=== PATIENT | female | born 1945 | race Caucasian/White ===

== ENCOUNTER 2017-02-13 02:06 | Inpatient (IN) | payer MEDICAID ==
[~2017-02-13] VITALS: Ht 309.9 cm; Wt 69.5 kg
[2017-02-13] VITALS (14 sets, daily range): BP systolic 139–177; BP diastolic 51–73
[~2017-02-13 02:06] MED LIST: ACET-2178 PO; ASPI-1035 PO; ATOR80TA PO; CARV25TA47 PO; CLOP75TA2 PO; FERR-63 PO; GABA-290 PO; HYDR-4134 PO; LEVO75TA PO; LISI-186 PO; SEVE800T8 PO
[2017-02-13] MEDS ORDERED: MORPHINE SULFATE 4 MG/ML CPJ (NOT FOR IM USE) IV ONE (03:00)
[2017-02-13] MEDS ORDERED: HYDRALAZINE 20MG/ML VIAL IV ONE (03:00)
[2017-02-13] MEDS ORDERED: ONDANSETRON HCL 4MG/2ML VIAL IV ONE (03:00)
[2017-02-13 03:05] LABS: BASOPHILS % 0.8 % (0.0-2.0); DIFFERENTIAL COMMENT 0; EOSINOPHILS % 5.9 % (0.0-5.0); HEMOGLOBIN. 9.9 g/dL (12.0-16.0); LYMPHOCYTES % 11.8 % (20.0-50.0); MEAN CORPUSCULAR HEMOGLOBIN 33.5 pg (28.0-32.0); MEAN CORPUSCULAR HGB CONC 32.9 g/dL (31.0-37.0); MEAN PLATELET VOLUME 10.7 fl (7.4-10.4); NEUTROPHILS % 75.5 % (40.0-76.0); PLATELET 102 x1000/uL (130-400); RED BLOOD CELL COUNT 2.95 mill/uL (4.2-5.4); RED CELL DISTRIBUTION WIDTH 16.7 % (11.6-14.6); WHITE BLOOD COUNT 8.7 x1000/uL (4.5-11.0)
[2017-02-13 03:10] LABS: INR 1.1; PROTHROMBIN TIME 11.4 sec
[2017-02-13 03:20] LABS: ALANINE AMINOTRANSFERASE < 6 IU/L (13-61); ALBUMIN 3.2 g/dL (3.4-5.0); ANION GAP 17; CALCIUM 8.5 mg/dL (8.5-10.1); CARBON DIOXIDE 26 mEq/L (21-32); CHLORIDE 102 mEq/L (98-107); INDEX HEMOLYSI 1 (1-3); INDEX ICTERIC 1 (1-4); INDEX LIPEMIC 1 (1-3); TROPONIN I 0.02 ng/mL (0.00-0.04); UREA NITROGEN BLOOD 45 mg/dL (7-21); eGFR 7 mL/min (>60)
[2017-02-13 03:32] LABS: NT PRO B-TYPE NATRIURETIC PEP 44801 pg/mL (5-125)
[2017-02-13] MEDS ORDERED: FENTANYL CITRATE/PF 50MCG/ML 2ML VIAL IV ONE (08:30)
[2017-02-13] MEDS ORDERED: VANCOMYCIN 1500MG in DEXTROSE 5% WATER 250ML IV SCH (14:00)
[2017-02-13] MEDS: HYDRALAZINE HCL 25MG TABLET PO SCH ×2 (14:00→23:44)
[2017-02-13] MEDS ORDERED: IOHEXOL-300 100 ML BOTTLE ONE (14:35)
[2017-02-13] MEDS ORDERED: ACETAMINOPHEN 325MG TABLET PO PRN (15:15)
[2017-02-13] MEDS ORDERED: ONDANSETRON HCL 4MG/2ML VIAL IV PRN (15:15)
[2017-02-13] MEDS ORDERED: HYDROCODONE/ACETAMINOPHEN 5/325MG TABLET PO PRN (15:15)
[2017-02-13] MEDS ORDERED: DOCUSATE SODIUM 100MG CAPSULE PO PRN (15:15)
[2017-02-13] MEDS ORDERED: GUAIFENESIN 200MG/10ML SUGAR FREE UDC PO PRN (15:15)
[2017-02-13] MEDS ORDERED: CLONIDINE 0.1MG TABLET PO PRN (15:15)
[2017-02-13] MEDS ORDERED: MAGNESIUM/ALUMINUM HYDROXIDE/SIMETHICONE 30ML UDC PO PRN (15:15)
[2017-02-13] MEDS: CLOPIDOGREL 75MG TABLET PO SCH (16:10)
[2017-02-13] MEDS ORDERED: LEVOFLOXACIN 500MG PREMIX 100 ML IV NR (17:00)
[2017-02-13] MEDS ORDERED: DEXTROSE 50% WATER 50ML SYRINGE IV PRN (18:45)
[2017-02-13] MEDS: INSULIN LISPRO 100 UNITS/ML SUBCUT SCH (21:00)
[2017-02-13] MEDS ORDERED: ATORVASTATIN CALCIUM 40MG TABLET PO SCH (21:00)
[2017-02-13] MEDS: BLOOD SUGAR DIAGNOSTIC STRIP TEST SCH (21:15)
[2017-02-13] MEDS: LISINOPRIL 10MG TABLET PO SCH (23:45)
[2017-02-13] MEDS: CARVEDILOL 25MG TABLET PO SCH (23:45)
[2017-02-14] VITALS: BP 151/65
[2017-02-14 04:00] VITALS: BP 132/59
[2017-02-14 06:25] LABS: BASOPHILS % 1.3 % (0.0-2.0); DIFFERENTIAL COMMENT 0; EOSINOPHILS % 8.2 % (0.0-5.0); HEMATOCRIT. 26.6 % (36.0-48.0); HEMOGLOBIN. 8.8 g/dL (12.0-16.0); MEAN CORPUSCULAR HEMOGLOBIN 33.8 pg (28.0-32.0); MEAN CORPUSCULAR HGB CONC 32.9 g/dL (31.0-37.0); MEAN CORPUSCULAR VOLUME 102.8 fL (81.0-99.0); MEAN PLATELET VOLUME 10.8 fl (7.4-10.4); MONOCYTES % 9.3 % (2.0-8.0); NEUTROPHILS % 63.2 % (40.0-76.0); PLATELET 81 x1000/uL (130-400); RED BLOOD CELL COUNT 2.59 mill/uL (4.2-5.4); RED CELL DISTRIBUTION WIDTH 16.9 % (11.6-14.6); WHITE BLOOD COUNT 4.9 x1000/uL (4.5-11.0)
[2017-02-14 06:34] LABS: CHLORIDE 107 mEq/L (98-107); INDEX HEMOLYSI 1 (1-3); INDEX ICTERIC 1 (1-4); INDEX LIPEMIC 1 (1-3)
[2017-02-14] MEDS: BLOOD SUGAR DIAGNOSTIC STRIP TEST SCH ×2 (06:36→12:22)
[2017-02-14] MEDS: HYDRALAZINE HCL 25MG TABLET PO SCH (06:36)
[2017-02-14 06:55] LABS: ALANINE AMINOTRANSFERASE < 6 IU/L (13-61); ALBUMIN 3.1 g/dL (3.4-5.0); ANION GAP 13; CALCIUM 8.8 mg/dL (8.5-10.1); CARBON DIOXIDE 27 mEq/L (21-32); MAGNESIUM 2.4 mg/dL (1.8-2.4); UREA NITROGEN BLOOD 23 mg/dL (7-21); eGFR 11 mL/min (>60)
[2017-02-14] MEDS: INSULIN LISPRO 100 UNITS/ML SUBCUT SCH (07:50)
[2017-02-14 08:00] VITALS: BP 130/55
[2017-02-14] MEDS ORDERED: ASPIRIN 81MG EC TABLET PO SCH (09:00)
[2017-02-14] MEDS: CLOPIDOGREL 75MG TABLET PO SCH (09:44)
[2017-02-14] MEDS: LISINOPRIL 10MG TABLET PO SCH (09:45)
[2017-02-14] MEDS: CARVEDILOL 25MG TABLET PO SCH (09:46)
[2017-02-15] MEDS ORDERED: LEVOFLOXACIN 250MG PREMIX 50 ML IV SCH (17:00)
[2017-02-15] MEDS ORDERED: EPOETIN ALFA 10000UNITS/ML VIAL SUBCUT SCH (21:00)
== END 2017-02-14 13:26 | disposition left against medical advice (07) | DRG 173 ==
LOC: ER 02:12 → 6WST 03:52
PROVIDERS: ADMIT Hospitalist; ATTEND Hospitalist
PROC: 5A1D00Z (ICD-10-PCS; principal; 2017-02-13)
PROC: 057Y3ZZ Dilation of Upper Vein, Percutaneous Approach (ICD-10-PCS; 2017-02-13)
PROC: B543ZZA Ultrasonography of Right Jugular Veins, Guidance (ICD-10-PCS; 2017-02-13)
PROC: 05HM33Z Insertion of Infusion Device into Right Internal Jugular Vein, Percutaneous Approach (ICD-10-PCS; 2017-02-13)
PROC: B5131ZA Fluoroscopy of Right Jugular Veins using Low Osmolar Contrast, Guidance (ICD-10-PCS; 2017-02-13)
PROC: B31N1ZZ Fluoroscopy of Other Upper Arteries using Low Osmolar Contrast (ICD-10-PCS; 2017-02-13)
DX: I13.2 Hypertensive heart and chronic kidney disease with heart failure and with stage 5 chronic kidney disease, or end stage renal disease (principal); N18.6 End stage renal disease; E11.22 Type 2 diabetes mellitus with diabetic chronic kidney disease; D63.1 Anemia in chronic kidney disease; D69.6 Thrombocytopenia, unspecified; I25.10 Atherosclerotic heart disease of native coronary artery without angina pectoris; I50.9 Heart failure, unspecified; E03.9 Hypothyroidism, unspecified; Z99.2 Dependence on renal dialysis; Z95.0 Presence of cardiac pacemaker; Z98.61 Coronary angioplasty status; Z95.1 Presence of aortocoronary bypass graft; Z88.6 Allergy status to analgesic agent
CPT/HCPCS: 36415; 36556; 36902; 71010; 76937; 77001; 80048; 80053; 82962; 83735; 83880; 84484; 85025; 85610; 87040; 93005; 93306; 96374; 96375; 99291; C1725; C1752; C1766; C1769; J0360; J1956; J2270; J2405; J3370; J7030; J7040; J7060; Q9967

== ENCOUNTER 2017-03-24 19:24 | Emergency (ER) | payer MEDICAID ==
[~2017-03-24] VITALS: Ht 157.5 cm; Wt 61.0 kg
[~2017-03-24 19:24] MED LIST changes: -ASPI-1035 PO; +ASPI-1159 PO
[2017-03-24] MEDS ORDERED: ONDANSETRON HCL 4MG/2ML VIAL IV STA (21:27)
[2017-03-24 22:02] LABS: BASOPHILS % 1.8 % (0.0-2.0); EOSINOPHILS % 5.5 % (0.0-5.0); HEMATOCRIT. 33.3 % (36.0-48.0); HEMOGLOBIN. 10.9 g/dL (12.0-16.0); LYMPHOCYTES % 33.3 % (20.0-50.0); MEAN CORPUSCULAR VOLUME 100.6 fL (81.0-99.0); MONOCYTES % 9.3 % (2.0-8.0); NEUTROPHILS % 50.1 % (40.0-76.0); PLATELET 98 x1000/uL (130-400); RED BLOOD CELL COUNT 3.31 mill/uL (4.2-5.4); RED CELL DISTRIBUTION WIDTH 17.4 % (11.6-14.6)
[2017-03-24 22:09] LABS: INR 1.1; PARTIAL THROMBOPLASTIN TIME 27.6 sec (24.0-34.0)
[2017-03-24 22:17] LABS: CARBON DIOXIDE 30 mEq/L (21-32); CHLORIDE 98 mEq/L (98-107); TROPONIN I 0.03 ng/mL (0.00-0.04)
[2017-03-24 22:45] VITALS: BP 132/89
== END 2017-03-25 01:15 | disposition home or self-care (01) ==
LOC: ER 22:53
DX: I13.11 Hypertensive heart and chronic kidney disease without heart failure, with stage 5 chronic kidney disease, or end stage renal disease (principal); E11.22 Type 2 diabetes mellitus with diabetic chronic kidney disease; N18.6 End stage renal disease; R60.9 Edema, unspecified; D50.9 Iron deficiency anemia, unspecified; E78.00 Pure hypercholesterolemia, unspecified; Z99.2 Dependence on renal dialysis; Z88.6 Allergy status to analgesic agent; Z95.1 Presence of aortocoronary bypass graft; Z79.82 Long term (current) use of aspirin
CPT/HCPCS: 36415; 70450; 71010; 80053; 83690; 83880; 84484; 85025; 85610; 85730; 93005; 99285; Z7610; J2405

== ENCOUNTER 2017-08-29 06:57 | Emergency (ER) | payer MEDICAID ==
[~2017-08-29] VITALS: Ht 157.5 cm; Wt 60.0 kg
[~2017-08-29 06:57] MED LIST changes: +CLOP75TA16 PO; -CLOP75TA2 PO
[2017-08-29] MEDS: ONDANSETRON HCL 4MG/2ML VIAL IV STA (07:34)
[2017-08-29 08:08] LABS: BASOPHILS % 1.1 % (0.0-2.0); EOSINOPHILS % 3.7 % (0.0-5.0); HEMOGLOBIN. 11.3 g/dL (12.0-16.0); LYMPHOCYTES % 21.7 % (20.0-50.0); MEAN CORPUSCULAR HEMOGLOBIN 33.6 pg (28.0-32.0); MEAN CORPUSCULAR VOLUME 101.5 fL (81.0-99.0); NEUTROPHILS % 64.5 % (40.0-76.0); PLATELET 56 x1000/uL (130-400); RED BLOOD CELL COUNT 3.35 mill/uL (4.2-5.4); RED CELL DISTRIBUTION WIDTH 16.8 % (11.6-14.6)
[2017-08-29 08:15] LABS: INR 1.2; PROTHROMBIN TIME 12.7 sec (9.4-11.6)
[2017-08-29 08:20] LABS: CARBON DIOXIDE 27 mEq/L (21-32); CHLORIDE 101 mEq/L (98-107)
[2017-08-29 10:01] VITALS: BP 129/77
== END 2017-08-29 10:21 | disposition home or self-care (01) ==
LOC: ER 07:27
DX: R11.2 Nausea with vomiting, unspecified (principal); R10.13 Epigastric pain; I12.0 Hypertensive chronic kidney disease with stage 5 chronic kidney disease or end stage renal disease; E11.22 Type 2 diabetes mellitus with diabetic chronic kidney disease; N18.6 End stage renal disease; E78.00 Pure hypercholesterolemia, unspecified; Z88.6 Allergy status to analgesic agent
CPT/HCPCS: 36415; 80053; 83690; 85025; 85610; 93005; 96374; 99285; J2405

== ENCOUNTER 2017-10-02 05:15 | Inpatient (IN) | payer MEDICAID ==
[~2017-10-02] VITALS: Ht 157.5 cm; Wt 60.8 kg
[~2017-10-02 05:15] MED LIST changes: -CLOP75TA16 PO
[2017-10-02] MEDS ORDERED: ASPIRIN 81MG TABLET PO ONE (06:15)
[2017-10-02] MEDS ORDERED: IPRATROPIUM/ALBUTEROL 0.5-3(2.5)MG/3ML NEB HHN ONE (06:30)
[2017-10-02 07:51] LABS: BASOPHILS % 0.7 % (0.0-2.0); EOSINOPHILS % 4.3 % (0.0-5.0); HEMATOCRIT. 31.5 % (36.0-48.0); HEMOGLOBIN. 10.3 g/dL (12.0-16.0); MEAN CORPUSCULAR HEMOGLOBIN 32.3 pg (28.0-32.0); MEAN CORPUSCULAR VOLUME 99.4 fL (81.0-99.0); MEAN PLATELET VOLUME 11.9 fl (7.4-10.4); MONOCYTES % 7.2 % (2.0-8.0); NEUTROPHILS % 70.8 % (40.0-76.0); PLATELET 71 x1000/uL (130-400); RED BLOOD CELL COUNT 3.17 mill/uL (4.2-5.4); RED CELL DISTRIBUTION WIDTH 16.6 % (11.6-14.6)
[2017-10-02 08:06] LABS: CARBON DIOXIDE 25 mEq/L (21-32); CHLORIDE 101 mEq/L (98-107); TROPONIN I 0.03 ng/mL (0.00-0.04)
[2017-10-02 08:29] LABS: INR 1.2; PARTIAL THROMBOPLASTIN TIME 26.4 sec (23.4-31.0)
[2017-10-02] MEDS ORDERED: FUROSEMIDE 40MG/4ML VIAL IVP ONE (09:00)
[2017-10-02] MEDS ORDERED: NITROGLYCERIN OINT 1GM/INCH UDPKT TD ONE (09:00)
[2017-10-02 12:15] VITALS: BP 164/62
[2017-10-02] MEDS ORDERED: CLONIDINE 0.1MG TABLET PO PRN (15:00)
[2017-10-02] MEDS ORDERED: ONDANSETRON HCL 4MG/2ML VIAL IV PRN (15:00)
[2017-10-02] MEDS ORDERED: HYDROCODONE/ACETAMINOPHEN 5/325MG TABLET PO PRN (15:00)
[2017-10-02] MEDS ORDERED: ACETAMINOPHEN 325MG TABLET PO PRN ×2 (15:00)
[2017-10-02] MEDS ORDERED: DOCUSATE SODIUM 100MG CAPSULE PO PRN (15:00)
[2017-10-02] MEDS ORDERED: GUAIFENESIN 200MG/10ML SUGAR FREE UDC PO PRN (15:00)
[2017-10-02] MEDS ORDERED: IPRATROPIUM/ALBUTEROL 0.5-3(2.5)MG/3ML NEB INH PRN (15:00)
[2017-10-02 15:46] VITALS: BP 136/36
[2017-10-02] MEDS: SEVELAMER CARBONATE 800 MG TABLET PO SCH (17:00)
[2017-10-02] MEDS: HYDRALAZINE HCL 50MG TABLET PO SCH ×2 (17:00→18:00)
[2017-10-02] MEDS ORDERED: LEVOFLOXACIN 500MG PREMIX 100 ML IV SCH (18:00)
[2017-10-02 20:00] VITALS: BP 133/39
[2017-10-02] MEDS: CARVEDILOL 25MG TABLET PO SCH (21:09)
[2017-10-02] MEDS ORDERED: DEXTROSE 50% WATER 50ML SYRINGE IV PRN (21:30)
[2017-10-03] VITALS: BP 166/49
[2017-10-03] MEDS: HYDRALAZINE HCL 50MG TABLET PO SCH ×2 (01:57→02:00)
[2017-10-03 04:00] VITALS: BP 158/51
[2017-10-03] MEDS ORDERED: BLOOD SUGAR DIAGNOSTIC STRIP TEST SCH (07:10)
[2017-10-03] MEDS ORDERED: INSULIN LISPRO 100 UNITS/ML SUBCUT SCH (07:40)
[2017-10-03 08:00] VITALS: BP 110/46
[2017-10-03] MEDS: SEVELAMER CARBONATE 800 MG TABLET PO SCH (08:07)
[2017-10-03] MEDS: CARVEDILOL 25MG TABLET PO SCH (08:07)
[2017-10-03] MEDS ORDERED: AMLODIPINE 10MG TABLET PO SCH (09:00)
[2017-10-03] MEDS ORDERED: LEVOTHYROXINE SODIUM 75MCG TABLET PO SCH (09:00)
[2017-10-03] MEDS ORDERED: FERROUS SULFATE 325MG TABLET PO SCH (09:00)
[2017-10-03] MEDS ORDERED: ASPIRIN 81MG EC TABLET PO SCH ×2 (09:00)
[2017-10-03] MEDS ORDERED: LISINOPRIL 5MG TABLET PO SCH (09:00)
[2017-10-04] MEDS ORDERED: LEVOFLOXACIN 250MG PREMIX 50 ML IV SCH (18:00)
== END 2017-10-03 13:22 | disposition home or self-care (01) | DRG 144 ==
LOC: ER 05:15 → 8WST 08:56 → EDBEDREQTM 08:57 → EDBEDREQ 08:57 → ENRESERV 10:19
PROVIDERS: ADMIT Hospitalist; ATTEND Hospitalist
PROC: 5A1D70Z Performance of Urinary Filtration, Intermittent, Less than 6 Hours Per Day (ICD-10-PCS; principal; 2017-10-02)
DX: J20.9 Acute bronchitis, unspecified (principal); I13.2 Hypertensive heart and chronic kidney disease with heart failure and with stage 5 chronic kidney disease, or end stage renal disease; E11.22 Type 2 diabetes mellitus with diabetic chronic kidney disease; N18.6 End stage renal disease; D63.1 Anemia in chronic kidney disease; E87.5 Hyperkalemia; I50.9 Heart failure, unspecified; E03.9 Hypothyroidism, unspecified; I25.10 Atherosclerotic heart disease of native coronary artery without angina pectoris; I25.2 Old myocardial infarction; Z95.1 Presence of aortocoronary bypass graft; Z95.5 Presence of coronary angioplasty implant and graft; Z99.2 Dependence on renal dialysis; Z88.8 Allergy status to other drugs, medicaments and biological substances; Z88.6 Allergy status to analgesic agent; Z79.899 Other long term (current) drug therapy; Z79.82 Long term (current) use of aspirin
CPT/HCPCS: 36415; 71010; 80053; 82962; 83605; 83880; 84484; 85025; 85379; 85610; 85730; 87040; 87804; 93005; 94640; 96374; 99285; J1940; J1956; J7040; J7620